=== PATIENT | female | born 1960 | race Caucasian/White ===

== ENCOUNTER → 2020-12-13 | Day surgery (SDC) | payer OTHER ==
[~2020-12-13] MED LIST: 0.9 % SODIUM CHLORIDE 10 ML DISP.SYRIN. IV PRN; ALBUTEROL SULFATE 2.5 MG/3 ML NEBU. NEB PRN; ALBUTEROL SULFATE 2.5 MG/3 ML NEBU. ONE; AMLO-187 PO; EPINEPHrine 1 MG/ML VIAL INJ PRN; EPINEPHrine 1 MG/ML VIAL ONE; EPINEPHrine SYRINGE 1 MG/10 ML SYRINGE ONE; IV RINGERS,LACTATED 1000ML 1,000 ML IV SCH; LIDOCAINE 1% Multi-Dose 20 ML VIAL. INJ PRN; LIDOCAINE 1% Multi-Dose 20 ML VIAL. ONE; LIDOCAINE 2% PF 5 ML VIAL. ONE; LIDOCAINE 2% VISCOUS 100 ML BOTTLE. MM PRN; LIDOCAINE 2% VISCOUS 100 ML BOTTLE. ONE; LIDOCAINE 4% TOPICAL 50 ML SOLUTION. MM PRN; LIDOCAINE 4% TOPICAL 50 ML SOLUTION. ONE; PRED1TAB3 PO; PROPOFOL 10 MG/ML (20ML) VIAL. IV ONE
[2020-12-13 14:01] VITALS: BP 120/77
[2020-12-13 15:11] VITALS: BP 114/73
--- NOTE | 2020-12-14 11:10 | OP ---
DATE OF SURGERY: 12/13/2020 PROCEDURES: Bronchoscopy, bronchoalveolar lavage, left and right. INDICATIONS: The patient with metastatic squamous cell carcinoma, undergoing a diagnostic bronchoscopy, CT chest revealing evidence of possible pneumonitis related to chemoimmunotherapy versus atypical infection. Risks, benefits and alternatives reviewed with the patient. She consented. DESCRIPTION OF THE PROCEDURE: Timeout was performed prior to sedation. Vital signs and O2 saturation were maintained within normal limits throughout the procedure. The scope was passed through oral block. The vocal cords were identified moving bilaterally without any dysfunction. The vocal cords were anesthetized with a total of 5 mL of 4% lidocaine. The bronchoscope was passed through the vocal cords into the proximal trachea which was normal. The distal trachea was normal. The right and left segments and subsegments were all visualized. There was no endobronchial lesion. The mucosa appeared to be normal. The scope was wedged into the right middle lobe and a bronchoalveolar lavage was performed. The scope was then wedged into the left lower lobe and a bronchoalveolar lavage was likewise performed. The return was clear. The patient tolerated the procedure well with no immediate complications. FINDINGS: 1. Normal vocal cords. 2. No endobronchial lesion. 3. No mucosal abnormalities. 4. No purulent secretions. PLAN: We will await the BAL results. The patient tolerated procedure well, follow up in the office. MELODY DR: Emy TID: [id number] CC: Jamie Dietz MD, Leann Potter MD
--- NOTE | 2020-12-15 00:44 | CONS ---
DATE OF CONSULTATION: 12/13/2020 HISTORY OF PRESENT ILLNESS: The patient is seen in pulmonary consultation for abnormal CT chest with a history of metastatic squamous cell lung cancer, versus primary skin. The patient is a delightful lady who is 60 years old. Unfortunately, she has been diagnosed with metastatic squamous cell, presumably lung origin. She was initially found to have a skin lesion, which was removed. Biopsy found to represent well differentiated squamous cell carcinoma. She underwent a Mohs surgery with clear margins. She then had a recurrent buttock lesion. She underwent excisional biopsy. The mass once again revealed subcutaneous invasion of squamous cell carcinoma, present at the deep margin. Since then, the patient has had a workup on 10/20/2019. She had a spiculated left lower lobe mass measuring 3.4 x 2.5 cm, surrounded by nodularity, adjacent to the left major fissure. On 10/24/2019, she had a PET scan, which revealed hypermetabolic activity in the left lower lobe, likely representing pulmonary neoplasm. She also had hypermetabolic activity in the left anterior thigh and left buttocks representing metastatic disease. She has a focal area of increased uptake in the left iliac bone concerning for osseous metastatic disease. The patient underwent a fine needle aspiration of the left lower lobe mass with EBUS, endobronchial ultrasound-guided, which was confirming carcinoma with squamous cell differentiation. She had molecular testing, which was HRAS, [id number] positive. She started chemoimmunotherapy in addition to the radiation. She has had radiation to the neck, the brain and the lung. Past therapy included carboplatin AUC 6 days plus abraxane 100 mg/m2 days 1, 8 and 15 plus Keytruda 200 mg, day 1 every 3 weeks, which began on 11/22/2019 for a total of 4-6 cycles followed by pembrolizumab maintenance chemoimmunotherapy. On 02/25/2020, she had a CT which revealed stable, slightly improved disease. She was maintained on Keytruda 400 mg every 6 weeks, which began on 04/03/2020. She had SRS and gamma knife to the brain, she had SRS to the lung lesion too that was completed on 07/22/2020. PET scan on 06/26/2020 showed disease progression. She was started on Taxotere with ramucirumab on 07/16/2020. Her present therapy includes Taxotere plus Cyramza, which was started on 07/16/2020. She recently had a repeat CT chest, which I personally reviewed. There appears to be progression of ill-defined alveolar type of infiltrates along with what appears to be either radiation changes to the left lower lobe or progression of disease. The actual mass itself appears to be necrotic surrounding the initial lung mass. There appears to be other consolidated infiltrates. I was asked to see the patient in consultation for the possibility of undergoing a diagnostic bronchoscopy. She has been tried on steroids in the past and had some improvement in her symptoms. Over the last several weeks, she has had increasing shortness of breath with minimal activity. She denies any documented fever. No productive cough. She does have an intermittent cough, which is mostly nonproductive. No hemoptysis. She denies any headaches, no new skin lesions. She experiences some GI disturbance after her chemoimmunotherapy that lasted approximately a week. PAST MEDICAL HISTORY: Otherwise remarkable for metastatic squamous cell, presumably lung origin as described above. She also has a history of hypertension, mild persistent asthma, gastroesophageal reflux, and adrenal insufficiency. She is on 7.5 mg of prednisone per day. REVIEW OF SYSTEMS: As indicated above, otherwise other systems were reviewed and negative. MEDICATIONS: Her medication list included amlodipine 5 mg daily, Symbicort 2 inhalations twice daily, ciprofloxacin 100 p.o. b.i.d. She is on multivitamin supplement, Diflucan 2 tablets for the next 6 days. She is utilizing some eyedrops p.r.n. ibuprofen, nystatin cream, omeprazole 20 mg daily, Zofran 8 mg p.r.n. for nausea, prednisone 7.5 mg daily, and senna 8.6 daily. PHYSICAL EXAMINATION: GENERAL: The patient does not appear to be in any respiratory distress. VITAL SIGNS: Stable. O2 saturation was greater than 92%. LUNGS: Clear. CARDIOVASCULAR: Regular rate and rhythm. ABDOMEN: Soft. EXTREMITIES: Minimal edema. NEUROLOGIC: The patient was awake, alert, following commands. A detailed neuro exam was not performed. She has had a COVID vaccination in the past. LABORATORY AND IMAGING DATA: I reviewed lab from 12/11/2020. Her sodium was 137, potassium was 4.1, BUN is 11, creatinine was 0.92. Her white count was 13.1, hemoglobin of 11, hematocrit of 35. I reviewed the recent CT scan of the chest. I reviewed the current scan in comparison to previous scan. The current scan dated 12/03/2020 revealed that the original mass to be somewhat necrotic. There are consolidated areas around the mass on the left with some air bronchograms. There is alveolar type of infiltrates on the right side with some areas that appear to be compatible with the possibility of lymphangitic spread. There is no pleural effusion. She does have a left lower lobe consolidation with air bronchograms. In summary, the patient is a 60-year-old with metastatic squamous cell carcinoma, presumably of lung origin. Details as indicated above. She now presents with an abnormal CT chest dated 12/03/2020. The infiltrates, alveolar type and consolidation on the left appeared to be worsening. She also has some areas of ground glass opacity. I have discussed the case with Dr. Dietz, we both agreed that I should proceed with a bronchoscopy with bronchoalveolar lavage. We will proceed with ruling out the possibility of atypical infection, if there are no signs of infection, we will initiate prednisone at 1 mg/kg for presumptive diagnosis of pneumonitis related to her chemoimmunotherapy. I think some of the changes on the left side are related to radiation-induced lung injury. With that being said, we will proceed with the above. I recommend that we repeat a CT chest in 8 weeks. We will maintain the patient on a prednisone taper slowly over the next 12 weeks. She will continue Symbicort 2 puffs twice daily, albuterol p.r.n. for intermittent wheezing. She will continue her other medications. She is ALLERGIC TO SULFA, so I am unable to initiate Bactrim for prophylaxis while on steroids. We went over the side effects of steroids. She will continue vitamin D and calcium supplement. As stated in Dr. Dietz's note, her current treatment with docetaxel has been discontinued for now. She will continue ramucirumab as maintenance therapy. I do appreciate the privilege in sharing in the patient's care. LARA/MYLES/VINOD DR: Emy TID: [id number] CC: Leann Potter MD, Jamie Dietz MD
--- NOTE | 2020-12-19 10:11 | PATHOLOGY ---
Note [facility] Accession Number: [id number] TESTS RESULT FLAG UNITS REF RANGE LAB Clinician Provided Cytology Information No. of containers..01 Other (Miscellaneous) Source: RML BAL DIAGNOSIS: RML BAL NEGATIVE FOR MALIGNANT CELLS. BRONCHIAL EPITHELIAL CELLS, PULMONARY MACROPHAGES, AND FEW LYMPHOCYTES PRESENT. SILVER METHENAMINE STAINED SMEARS ARE NEGATIVE FOR PNEUMOCYSTIS JIROVECI. NO FUNGAL ORGANISMS ARE PRESENT. Signed out by: 02 Mike Hitchcock MD, Pathologist NPI- [id number] Performed by: Radhika Alvarez, Boarding Specialist ([facility]) Gross description: 01 19ML, CLEAR COLORLESS, 1 TP 1 GMS /LCS 12/18/2020 0203 Local FLAG LEGEND: L-Low Normal,H-High Normal,LL-Alert Low,HH-Alert High <-Panic Low,>-Panic High,A-Abnormal,AA-Critical Abnormal Performed at: [facility] [address] [place] [address] Tre Donohue MD, 02 [facility] [facility] [address] [place] [address] Mike Hitchcock MD, Specimen Comment: A courtesy copy of this report has been sent to [phone] Specimen Comment: [phone], Specimen Comment: Report sent to ,DR MALLOY / DR QUIGLEY Specimen Comment: A duplicate report has been generated due to demographic updates. Performed at: 01 [facility] [address], [place], [place] [id number] MD Tre Donohue MD Phone: [phone]
--- NOTE | 2020-12-19 15:12 | PATHOLOGY ---
Note [facility] Accession Number: [id number] TESTS RESULT FLAG UNITS REF RANGE LAB DIAGNOSIS: [A] 01 INCONCLUSIVE. ADENOCARCIN INCONCLUSIVE. THERE ARE ATYPICAL CELLS PRESENT, SOME OF WHICH APPEAR KERATINIZED. CANNOT RULE OUT MALIGNANCY. BRONCHIAL EPITHELIAL CELLS AND PULMONARY MACROPHAGES PRESENT. SILVER METHENAMINE STAINED SMEARS ARE NEGATIVE FOR PNEUMOCYSTIS JIROVECI. NO FUNGAL ORGANISMS ARE PRESENT. THE CASE IS ALSO EXAMINED BY DR DONOHUE, CYTOPATHOLOGIST, WHO CONCURS WITH THE DIAGNOSIS. Signed out by: 01 Mike Hitchcock MD, Pathologist NPI- [id number] Performed by: 02 Radhika Alvarez, Ribbon Lapper Tender ([facility]) FLAG LEGEND: L-Low Normal,H-High Normal,LL-Alert Low,HH-Alert High <-Panic Low,>-Panic High,A-Abnormal,AA-Critical Abnormal Performed at: 01 [facility] [address] [place] [address] Mike Hitchcock MD, 02 [facility] [address] [place] [address] [address] [place] [address] Tre Donohue MD, Specimen Comment: A courtesy copy of this report has been sent to [phone], [phone] Specimen Comment: [phone], Specimen Comment: Report sent to ,DR MALLOY / DR QUIGLEY Specimen Comment: A duplicate report has been generated due to demographic updates. Performed at: 01 [facility] [address] [place], [place] [id number] MD Mike Hitchcock MD Phone: [phone]
== END | disposition home or self-care (01) ==
LOC: SURG 13:24
PROVIDERS: ATTEND Internal Medicine Pulmonary Disease
DX: R91.8 Other nonspecific abnormal finding of lung field (principal); I10 Essential (primary) hypertension; Z90.710 Acquired absence of both cervix and uterus; Z98.890 Other specified postprocedural states; Z79.899 Other long term (current) drug therapy; Z88.0 Allergy status to penicillin; Z88.2 Allergy status to sulfonamides; Z88.5 Allergy status to narcotic agent
CPT/HCPCS: 31624; 36415; 87070; 87102; 87116; 87205; 87252; 87801; 94640; J0171; J2704; J3490; J7613; 31622

== ENCOUNTER → 2021-01-07 | Outpatient (CLI) | payer OTHER ==
[2020-12-13 15:11] VITALS: BP 114/73
[~2021-01-07] MED LIST changes: -0.9 % SODIUM CHLORIDE 10 ML DISP.SYRIN. IV PRN; -ALBUTEROL SULFATE 2.5 MG/3 ML NEBU. NEB PRN; -ALBUTEROL SULFATE 2.5 MG/3 ML NEBU. ONE; -EPINEPHrine 1 MG/ML VIAL INJ PRN; -EPINEPHrine 1 MG/ML VIAL ONE; -EPINEPHrine SYRINGE 1 MG/10 ML SYRINGE ONE; -IV RINGERS,LACTATED 1000ML 1,000 ML IV SCH; -LIDOCAINE 1% Multi-Dose 20 ML VIAL. INJ PRN; -LIDOCAINE 1% Multi-Dose 20 ML VIAL. ONE; -LIDOCAINE 2% PF 5 ML VIAL. ONE; -LIDOCAINE 2% VISCOUS 100 ML BOTTLE. MM PRN; -LIDOCAINE 2% VISCOUS 100 ML BOTTLE. ONE; -LIDOCAINE 4% TOPICAL 50 ML SOLUTION. MM PRN; -LIDOCAINE 4% TOPICAL 50 ML SOLUTION. ONE; -PROPOFOL 10 MG/ML (20ML) VIAL. IV ONE
--- NOTE | 2021-01-09 12:30 | RESP ---
DATE OF SERVICE: 01/07/2021 PULMONARY FUNCTION TESTS ATTENDING PHYSICIAN: Dixon Low MD. The patient's FVC was 3.5, which is 101% predicted. FEV1 2.5, which is 94% predicted. The FEV1/FVC ratio was normal. No bronchodilators given. Lung volumes showed total lung capacity of 165% predicted and residual volume of 291% predicted. Diffusion capacity was normal. IMPRESSION: 1. No evidence of obstructive airway disease. 2. No bronchodilators given. 3. Lung volumes consistent with air trapping and hyperinflation. 4. Normal diffusion capacity. REBECA/EDDIE DR: Saqib TID: [id number] CC: DIXON LOW MD
== END ==
LOC: PF 13:02
PROVIDERS: ATTEND Internal Medicine Pulmonary Disease
DX: R06.02 Shortness of breath (principal)
CPT/HCPCS: 94010; 94726; 94729